=== PATIENT | male | born 2000 | race American Indian/Alaskan Native ===

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

== ENCOUNTER 2022-05-21 16:39 | Emergency (ER) | payer SELFPAY ==
[2022-05-21] MEDS ORDERED: levETIRAcetam 1000 MG/NS 0.75% 1,000 MG/100 ML BAG IV ONE (17:21)
[2022-05-21] MEDS ORDERED: BUTALB/ACETAMINOPHEN/CAFFEINE TAB PO ONE (17:26)
--- NOTE | 2022-05-21 17:30 | Emergency Department Report ---
HPI - General Chief Complaint: Seizure Time Seen by Provider: 05/21/22 17:20 - HPI HPI: [place] [id number] Patient is a 22-year-old male present with a chief complaint of seizure. Patient has a history of seizures and states he has been mostly compliant with h is Keppra however he forgot to take his dose this morning. Patient states he was playing a video game when he had a generalized tonic-clonic seizure. Patient now complains of a headache which she states he always gets after seizures and this headache feels no different. 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 - Surgical History Past Surgical History?: No - Family History Family history: no significant - Social History Smoking Status: Never Smoker Substance Use Type: Marijuana - Medications Home Medications: Home Medications Medication Instructions Recorded Confirmed Last Taken Type levETIRAcetam [Keppra TAB] 500 mg PO BID 11/12/19 11/12/19 11/12/19 History ED Review of Systems ROS: Stated complaint: SEIZURE Other details as noted in HPI Constitutional: no symptoms reported Eyes: denies: eye pain ENT: denies: throat pain Respiratory: no symptoms reported Cardiovascular: denies: chest pain Endocrine: no symptoms reported Gastrointestinal: denies: abdominal pain Genitourinary: denies: dysuria Musculoskeletal: denies: back pain Neurological: headache Physical Exam - Physical Exam Vital Signs: Vital Signs 05/21/22 16:49 Temperature 98.2 F Pulse Rate 84 Respiratory 16 Rate Blood Pressure 108/72 [Left] O2 Sat by Pulse 98 Oximetry Physical Exam: GENERAL: The patient is well-developed well-nourished male lying on stretcher not appearing to be in acute distress. [] HEENT: Normocephalic. Atraumatic. Extraocular motions are intact. Patient has moist mucous membranes. NECK: Supple. Trachea midline CHEST/LUNGS: Clear to auscultation. There is no respiratory distress noted. HEART/CARDIOVASCULAR: Regular. There is no tachycardia. There is no gallop rub or murmur. ABDOMEN: Abdomen is soft, nontender. Patient has normal bowel sounds. There is no abdominal distention. SKIN: There is no rash. There is no edema. There is no diaphoresis. NEURO: The patient is awake, alert, and oriented. The patient is cooperative. The patient has no focal neurologic deficits. The patient has normal speech. GCS 15 MUSCULOSKELETAL: There is no evidence of acute injury. ED Course Vital Signs 05/21/22 16:49 Temperature 98.2 F Pulse Rate 84 Respiratory 16 Rate Blood Pressure 108/72 [Left] O2 Sat by Pulse 98 Oximetry ED Medical Decision Making - Lab Data Result diagrams: 05/21/22 17:40 05/21/22 17:40 Laboratory Tests 05/21/22 05/21/22 17:40 17:40 WBC 4.4 L RBC 5.29 H Hgb 15.1 Hct 45.3 MCV 86 MCH 29 MCHC 33 RDW 14.8 Plt Count 251 Lymph % (Auto) 23.9 [place] % (Auto) 7.4 H Eos % (Auto) 0.8 Baso % (Auto) 0.7 Lymph # (Auto) 1.1 L [place] # (Auto) 0.3 Eos # (Auto) 0.0 Baso # (Auto) 0.0 Seg Neutrophils % 67.2 Seg Neutrophils # 3.0 Sodium 141 Potassium 4.4 Chloride 105.2 Carbon Dioxide 28 Anion Gap 12 BUN 6 L Creatinine 0.7 L Estimated GFR > 60 BUN/Creatinine Ratio 9 Glucose 103 H Calcium 9.1 Magnesium 2.00 - Differential Diagnosis Seizures Critical care attestation.: If time is entered above; I have spent that time in minutes in the direct care of this critically ill patient, excluding procedure time. ED Disposition Clinical Impression: Seizure Disposition: 01 HOME / SELF CARE / HOMELESS Is pt being admited?: No Does the pt Need Aspirin: No Condition: Stable Instructions: Epilepsy, [id number] Additional Instructions: Return to the emergency department should you develop worsening symptoms, inability to tolerate food or liquids, high fever or any other concerns insert my discharge warning Referrals: DWAIN PAULINO MD [Staff Physician] - 3-5 Days (Dr. Paulino is a neurologist. Please follow-up with him if you do not already have a neurologist) Time of Disposition: 18:35
[2022-05-21 18:03] LABS: Basophils % (Auto) 0.7 % (0.0-1.8); Eosinophils % (Auto) 0.8 % (0.0-4.3); Hematocrit 45.3 % (35.5-45.6); Hemoglobin 15.1 gm/dl (11.8-15.2); Lymphocytes # (Auto) 1.1 K/mm3 (1.2-5.4); Lymphocytes % (Auto) 23.9 % (13.4-35.0); Mean Corpuscular HGB Conc 33 % (32-34); Mean Corpuscular Volume 86 fl (84-94); Monocytes # (Auto) 0.3 K/mm3 (0.0-0.8); Monocytes % (Auto) 7.4 % (0.0-7.3); Platelet Count 251 K/mm3 (140-440); Red Blood Count 5.29 M/mm3 (3.65-5.03); Red Cell Distribution Width 14.8 % (13.2-15.2)
[2022-05-21 18:20] LABS: Blood Urea Nitrogen 6 mg/dL (9-20); Calcium 9.1 mg/dL (8.4-10.2); Hemolysis Index 2
[2022-05-21 18:22] LABS: BUN/Creatinine Ratio 9
[2022-05-21 19:21] VITALS: BP 121/80
== END 2022-05-21 19:18 | disposition home or self-care (01) ==
LOC: ED 16:39
DX: R56.9 Unspecified convulsions (principal); R51.9 Headache, unspecified; F12.90 Cannabis use, unspecified, uncomplicated; Z98.890 Other specified postprocedural states; Z79.899 Other long term (current) drug therapy
CPT/HCPCS: 36415; 80048; 83735; 85025; 96374; 99284; J1953